=== PATIENT | female | born 1950 | race Caucasian/White ===

== ENCOUNTER → 2018-10-24 | Outpatient (CLI) | payer MEDICARE, OTHER ==
[~2018-10-24] MED LIST: ASCO500; B Complex #11 EACH PO; B-125000 MC1 PO; BAYER CHEWABLE81 MG; L-LYSINE500 MG PO; LUTEIN40 MG PO; MAGOXI400 PO; Multivitamin1 EAC1 PO; Omega 3 1,0001 EACH PO; Super Calcium600 MG PO; VITAMIN D35000 UNI1 PO; VITAMIN E400 UNI1 PO; ZINC50 MG PO
== END | disposition home or self-care (01) ==
LOC: LAB SHORT 10:01 → PLD 10:01
DX: D48.5 Neoplasm of uncertain behavior of skin (principal)
CPT/HCPCS: 88305

== ENCOUNTER → 2018-11-13 | Outpatient (CLI) | payer MEDICARE, OTHER | END | disposition home or self-care (01) | LOC: LAB SHORT 16:20 → PLD 16:20 | DX: C44.519 Basal cell carcinoma of skin of other part of trunk (principal) | CPT/HCPCS: 88305 ==

== ENCOUNTER → 2019-04-02 | Outpatient (CLI) | payer MEDICARE, OTHER | END | disposition home or self-care (01) | LOC: LAB SHORT 14:51 → PLD 14:51 | DX: L57.0 Actinic keratosis (principal) | CPT/HCPCS: 88305 ==

== ENCOUNTER → 2022-11-01 | Outpatient (CLI) | payer MEDICARE | LOC: PLD 14:42 → LAB SHORT 14:42 | DX: L57.0 Actinic keratosis (principal); L57.8 Other skin changes due to chronic exposure to nonionizing radiation | CPT/HCPCS: 88305 ==

== ENCOUNTER 2023-04-26 08:01 | Day surgery (SDC) | payer MEDICARE, OTHER ==
[~2023-04-26] VITALS: Ht 162.6 cm; Wt 59.8 kg
[2023-04-26] MEDS ORDERED: MAGCHL64ER (08:26)
[2023-04-26] MEDS ORDERED: NAPR500 (08:27)
[2023-04-26] MEDS ORDERED: HYDCHL25 (08:27)
[2023-04-26] MEDS ORDERED: ZYRTEC10 M2 (08:27)
[2023-04-26 10:03] VITALS: BP 110/62
== END 2023-04-26 10:07 | disposition home or self-care (01) ==
LOC: ORSCSDS 08:01
PROVIDERS: Surgery
PROC: 0DJD8ZZ Inspection of Lower Intestinal Tract, Via Natural or Artificial Opening Endoscopic (ICD-10-PCS; principal; 2023-04-26 09:15)
DX: Z12.11 Encounter for screening for malignant neoplasm of colon (principal); Z86.010 Personal history of colon polyps; Z79.82 Long term (current) use of aspirin
CPT/HCPCS: J2704; J7120

== ENCOUNTER 2023-04-28 07:16 | Day surgery (SDC) | payer MEDICARE, OTHER ==
[~2023-04-28 07:16] MED LIST changes: +HYDCHL25; +MAGCHL64ER; +NAPR500; +ZYRTEC10 M2
== END 2023-04-28 22:39 | disposition home or self-care (01) ==
LOC: CT 07:16
DX: I44.7 Left bundle-branch block, unspecified (principal); Z82.49 Family history of ischemic heart disease and other diseases of the circulatory system; Z88.5 Allergy status to narcotic agent
CPT/HCPCS: 75574; Q9967

== ENCOUNTER 2025-07-09 07:28 | Day surgery (SDC) | payer OTHER ==
[2025-07-09] VITALS (14 sets, daily range): BP systolic 106–151; BP diastolic 55–102
[~2025-07-09] VITALS: Ht 162.6 cm; Wt 60.3 kg
[~2025-07-09 07:28] MED LIST changes: +ASCO500 PO; +ASPIR 8181 M1 PO; -BAYER CHEWABLE81 MG; +MAGNESIUM OXID500 MG PO; +NAPR220 PO; +THERA-D2000 UNIT PO; +VITAMIN B122500 MC1 PO; -VITAMIN D35000 UNI1 PO; +ZINC15; +ZYRTEC10 M1 PO; +[UNRECOGNIZED DRUG - OTHER] PO
[2025-07-09] MEDS ORDERED: Chlorhexidine Mouth Care 15 ML UDC MT SCH (07:45)
[2025-07-09] MEDS ORDERED: Tranexamic Acid 100 ML IV SCH (07:45)
[2025-07-09] MEDS ORDERED: Ropivacaine 0.5% HCl/Pf 123.125 MG,EPINEPHrine HCL 0.25 MG,Ketorolac Tromethamine 15 MG... INFIL SCH (07:45)
[2025-07-09] MEDS ORDERED: CeFAZolin Sodium 2,000 MG in NS 100 ML IV SCH ×2 (07:45→18:00)
[2025-07-09] MEDS ORDERED: HYDROmorphone HCl/Pf 1MG SYR IV PRN ×2 (08:45→09:40)
[2025-07-09] MEDS ORDERED: Albuterol 2.5 MG/3 ML VIAL INH PRN (08:45)
[2025-07-09] MEDS ORDERED: FentaNYL Citrate 50 MCG/ML 2 ML Injection IV PRN ×2 (08:45)
[2025-07-09] MEDS ORDERED: Ondansetron HCl 2 MG / ML 2ML Vial IV PRN ×2 (08:45→09:35)
[2025-07-09] MEDS ORDERED: Prochlorperazine Edisylate 10 mg Vial IV PRN (09:35)
[2025-07-09] MEDS ORDERED: Magnesium Hydroxide Conc 10 ML UDC PO PRN (09:45)
[2025-07-09] MEDS ORDERED: FLU VACC TS2025(65UP)/MF59C/PF 45 MCG/0.5 ML SYRINGE IM SCH (09:50)
[2025-07-09] MEDS ORDERED: CeFAZolin Sodium 1000 mg Vial XX ONE (09:58)
[2025-07-09] MEDS ORDERED: Tranexamic Acid 1000 MG/10 ML 10ML Vial (SDV) XX ONE (10:09)
[2025-07-09] MEDS ORDERED: Ondansetron HCl 2 MG / ML 2ML Vial ONE (10:15)
[2025-07-09] MEDS ORDERED: Dexamethasone Sod Phos 10 MG/ML 1ML VIAL ONE (10:15)
[2025-07-09] MEDS ORDERED: ePHEDrine Sulfate 50 MG/ML 1ML Injection ONE (10:37)
[2025-07-09] MEDS ORDERED: Ropivacaine 0.5% HCl/Pf 5 MG/ML 20ML VIAL INJ ONE (10:39)
--- NOTE | 2025-07-09 11:00 | NUR ---
07/09/25 Olive Bradshaw DM LINER UHMWPE LINER HIGHCROSS HEAD:28MM DOUBLE MOBILITY LINER DME REF:[phone] LOT:[id number] EXP:02-19-2030
[2025-07-09] MEDS ORDERED: Phenylephrine HCl 100 MCG/ML-NS 10MLSYR (1MG/10ML) ONE (11:07)
[2025-07-09] MEDS ORDERED: Ketorolac Tromethamine 30mg Vial ONE (11:52)
[2025-07-09] MEDS ORDERED: Ketorolac Tromethamine 15mg Vial IV SCH (12:00)
[2025-07-09] MEDS ORDERED: FentaNYL Citrate 50 MCG/ML 2 ML Injection ONE (12:27)
--- NOTE | 2025-07-09 18:07 | NUR ---
SHIFT SUMMARY S/P L JUSTINA. ABLE TO MOVE LEGS, BUT STATES RESIDUAL NUMBNESS IN SURGICAL LEG FROM SPINAL. POLAR PACK IN PLACE. STATES NO PAIN SINCE ARRIVAL. VOIDED SUCCESSFULLY. TOLERATING FOOD FLUIDS WELL. CURRENTLY RESTING IN BED w/CALL LIGHT WITHIN REACH.
[2025-07-10 00:48] VITALS: BP 131/69
[2025-07-10 03:21] VITALS: BP 115/50
[2025-07-10 04:10] VITALS: BP 116/57
[2025-07-10 04:23] LABS: BASOPHILS ABSOLUTE AUTO 0.01 K/mm3 (0.00-0.23); BASOPHILS PERCENT AUTO 0 % (0-2); EOSINOPHILS ABSOLUTE AUTO 0.00 K/mm3 (0.00-0.68); EOSINOPHILS PERCENT AUTO 0 % (0-6); Hematocrit 28.8 % (33.0-51.0); Hemoglobin 9.2 g/dL (11.5-16.0); IMMATURE GRAN ABSOLUTE AUTO 0.04 K/mm3 (0.00-0.10); IMMATURE GRAN PERCENT AUTO 1 % (0-1); LYMPHOCYTES ABSOLUTE AUTO 1.00 K/mm3 (0.84-5.20); LYMPHOCYTES PERCENT AUTO 12 % (21-46); MONOCYTES ABSOLUTE AUTO 0.46 K/mm3 (0.16-1.47); MONOCYTES PERCENT AUTO 6 % (4-13); Mean Corpuscular HGB Conc 31.9 g/dL (31.5-36.5); Mean Corpuscular Volume 83 fL (80-100); NEUTROPHILS ABSOLUTE AUTO 6.67 K/mm3 (1.96-9.15); NEUTROPHILS PERCENT AUTO 82 % (41-73); NRBC ABSOLUTE 0.00 K/mm3 (0.00-0.02); NRBC Auto 0.0 /100 WBC (0.0-0.2); Platelet Count 157 K/mm3 (150-400); RDW Coefficient Variation 14.9 % (11.7-14.2); RDW Standard Deviation 45.1 fL (35.1-46.3)
--- NOTE | 2025-07-10 04:33 | NUR ---
SHIFT SUMMARY KIKI WAS ALERT AND FULLY ORIENTED ON ASSESSMENT. PT DENIES PAIN, CHEST PAIN, NAUSEA, SOB. DRESSING C/D/I, SENSATION/ CIRCULAION HAS RETURNED TO BLE'S. PT AMBULATING/ VOIDING APPROPRIATELY. NO ACUTE EVENTS, NO NOTED CHANGES TO PT CONDITION.
[2025-07-10 05:01] LABS: Anion Gap 9.0 mmol/L (3-11); Blood Urea Nitrogen 13.0 mg/dL (8-24); CO2, Blood 25.0 mmol/L (21-32); Calcium, Blood 8.5 mg/dL (8.5-10.1); Chloride, Blood 109.0 mmol/L (98-108); Creatinine, Blood 0.65 mg/dL (0.40-1.00); Glucose, Blood 210.0 mg/dL (70-99); Potassium, Blood 3.7 mmol/L (3.5-5.5); Sodium, Blood 139.0 mmol/L (136-145)
[2025-07-10 07:30] VITALS: BP 112/56
[2025-07-10] MEDS ORDERED: Cholecalciferol 1000 Unit Tablet (=25MCG) PO SCH (09:00)
[2025-07-10] MEDS ORDERED: Vitamin E 400 Intn'l Units Cap PO SCH (09:00)
[2025-07-10] MEDS ORDERED: Multivitamins 1 Tab PO SCH (09:00)
[2025-07-10] MEDS ORDERED: LYSINE 500 MG PO SCH (09:00)
[2025-07-10] MEDS ORDERED: Calcium Carbonate 1,250 MG TABLET PO SCH (09:00)
--- NOTE | 2025-07-10 10:00 | NUR ---
DISCHARGE SUMMARY POD 1 L JUSTINA. A&O x4, VSS. TOLERATING FOOD & FLUIDS WELL. L HIP w/TEFLA & TEGADERM, C/D/I. WORKED w/THERAPY - AMBULATED IN HALLWAY & ROOM. STATES MINIMAL PAIN CONTROLLED WELL PER EMAR. VOIDED SUCCESSFULLY. POLAR PACK SENT. DISCHARGE INSTRUCTIONS REVIEWED & GIVEN. ESCORTED OUT VIA WC.
== END 2025-07-10 09:58 | disposition home or self-care (01) ==
LOC: ORSCMMR 07:28 → ORD 07:30 → ORSCMMR 09:15 → ORD 09:15 → SURS 12:25 → ORSCMMR 07-10 09:58
PROVIDERS: Orthopaedic Surgery
PROC: 0SRB0J9 Replacement of Left Hip Joint with Synthetic Substitute, Cemented, Open Approach (ICD-10-PCS; principal; 2025-07-09 09:15)
DX: M16.12 Unilateral primary osteoarthritis, left hip (principal)
CPT/HCPCS: 36415; 72170; 80048; 85025; 97110; 97161; A9270; C1713; C1776; J0166; J0690; J0735; J1100; J1885; J2371; J2405; J2704; J2795; J3010; J7120